=== PATIENT | female | born 1985 | race Caucasian/White ===

== ENCOUNTER 2018-04-30 12:00 | Inpatient (IN) | payer OTHER ==
[~2018-04-30] VITALS: Ht 147.3 cm; Wt 105.6 kg
[~2018-04-30 12:00] MED LIST: OXYTOCIN 30 UNITS/LR 500 ML BAG IV ONE
[2018-04-30] MEDS ORDERED: LACTATED RINGER'S 1,000 ML IV SCH (12:10)
[2018-04-30] MEDS ORDERED: METHYLERGONOVINE 0.2 MG INJ IM PRN ×2 (12:30→18:30)
[2018-04-30] MEDS ORDERED: CARBOPROST 250 MCG INJ IM PRN ×2 (12:30→18:30)
[2018-04-30] MEDS ORDERED: MISOPROSTOL 200 MCG TAB PR PRN ×2 (12:30→18:30)
[2018-04-30] MEDS ORDERED: OXYTOCIN 30 UNITS/LR 500 ML IV SCH (12:30)
[2018-04-30] MEDS ORDERED: OXYTOCIN 30 UNITS/LR 500 ML IV PRN ×2 (12:30→18:30)
[2018-04-30] MEDS ORDERED: CEFAZOLIN 2 GM/50 ML (PMX) 50 ML IVPB SCH (12:30)
[2018-04-30] MEDS ORDERED: ONDANSETRON 4 MG INJ IV STA (12:50)
[2018-04-30] MEDS ORDERED: CITRIC ACID/NA CITRATE 30 ML CUP PO ONE (13:00)
--- NOTE | 2018-04-30 13:17 | PREAC ---
Date/Time of Note Date/Time of Note DATE: 04/30/18 TIME: 13:16 Anesthesia Eval and Record Evaluation Time Pre-Procedure Interview DATE: 04/30/18 TIME: 13:16 Age 32 Sex female NPO: 8 hrs Preoperative diagnosis Repeat , request for BTL Planned procedure & BTL Past Medical History Past Medical History: Includes : : (4), Para: (3), Gestational age: (41) Surgery & Anesthesia Issues No known issue Meds Anticoagulation: No Beta Renzo within 24 hr: No Reason Beta Renzo not given: Pt. not on B-Renzo Current Medications Lactated Ringer's 1,000 ml @ 125 mls/hr Q8H IV ; Start 04/30/18 at 12:10 Cefazolin Sodium/ Dextrose 50 ml @ 100 mls/hr ONCE IVPB ; Start 04/30/18 at 12:30 Oxytocin/Lactated Ringer's 500 ml @ 125 mls/hr POST IV ; Start 04/30/18 at 12:30 Oxytocin/Lactated Ringer's 500 ml @ 0 mls/hr ONCE PRN IV .VAGINAL BLEEDING; Start 04/30/18 at 12:30 Methylergonovine Maleate (Methergine) 0.2 mg ONCE PRN IM .VAGINAL BLEEDING; Start 04/30/18 at 12:30 Carboprost Tromethamine (Hemabate) 250 mcg ONCE PRN IM .VAGINAL BLEEDING; Start 04/30/18 at 12:30 Misoprostol (Cytotec) 1,000 mcg ONCE PRN LA .VAGINAL BLEEDING; Start 04/30/18 at 12:30 Meds reviewed: Yes Allergies Coded Allergies: No Known Allergy (Unverified , 04/30/18) Allergies Reviewed: Yes Labs/Studies Labs Reviewed: Reviewed by anesthesiologist Result Diagram: 04/30/18 1233 Laboratory Tests 04/30/18 12:33 test: Positive Studies: ECG (n/a), CXR (n/a) Pre-procedure Exam Airway: Adequate mouth opening, Adequate thyromental dist Mallampati: Mallampati II Teeth: Normal Lung: Normal Heart: Normal ASA Physical Status ASA physical status: 2 Emergency: None Planned Anesthetic Neuraxial: Spinal Planned Pain Management Sub-arachniod narcotics, Parenteral pain med Pre-operative Attestations Prior to commencing anesthesia and surgery, the patient was re-evaluated, there was verification of: *The patient's identity *The results of appropriate recent lab work and preoperative vital signs *The above evaluation not changing prior to induction *Anesthetic plan, risk benefits, alternative and complications discussed with patient/family; questions answered; patient/family understands, accepts and wishes to proceed. KEN ULLOA MD Apr 30, 2018 13:17
[2018-04-30 13:56] VITALS: Ht 147.3 cm; Wt 105.6 kg
[2018-04-30] MEDS ORDERED: OXYTOCIN 10 UNIT INJ ONE (14:31)
[2018-04-30] MEDS ORDERED: morphine SULFATE/PF (10 MG/10 ML) INJ ONE (14:31)
[2018-04-30] MEDS ORDERED: PHENYLephrine (100 MCG/ML) 5ML SYG ONE (14:31)
[2018-04-30] MEDS ORDERED: OXYCODONE/ACETAMINOPHEN (5/325) TAB PO PRN (15:00)
[2018-04-30] MEDS ORDERED: HYDROmorphONE 0.5 MG/0.5 ML SYG IV PRN ×4 (15:00→20:30)
[2018-04-30] MEDS ORDERED: ACETAMINOPHEN 500 MG TAB PO PRN ×2 (15:00→20:30)
[2018-04-30] MEDS ORDERED: METOCLOPRAMIDE 10 MG INJ IV PRN (15:00)
[2018-04-30] MEDS ORDERED: NALBUPHINE HCL (10 MG/1 ML) INJ IV PRN ×2 (15:00→20:30)
[2018-04-30] MEDS ORDERED: NALOXONE (0.4 MG/ML) INJ IV PRN ×2 (15:00→20:30)
[2018-04-30] MEDS ORDERED: HYDROCODONE/APAP (5/325) TAB PO PRN ×2 (15:00→20:30)
[2018-04-30] MEDS ORDERED: EPHEDrine SULFATE 50 MG/5 ML SYG IV PRN (15:00)
[2018-04-30] MEDS ORDERED: DIPHENHYDRAMINE 50 MG INJ IV PRN ×3 (15:00→20:30)
[2018-04-30] MEDS ORDERED: FENTAnyl 50 MCG/ML VIAL IV PRN ×2 (15:00)
[2018-04-30] MEDS ORDERED: MEPERIDINE 25 MG INJ IV PRN (15:00)
[2018-04-30] MEDS ORDERED: LABETALOL HCL 20MG INJ IV PRN (15:00)
[2018-04-30] MEDS ORDERED: ONDANSETRON 4 MG INJ IV PRN ×3 (15:00→20:30)
[2018-04-30] MEDS ORDERED: HYDROmorphONE 1 MG/5 ML IV SYRINGE IV PRN ×2 (15:00)
[2018-04-30] MEDS ORDERED: KETOROLAC 30 MG INJ IV PRN ×2 (15:00→20:30)
[2018-04-30] MEDS ORDERED: morphine 2 MG INJ IV PRN ×4 (15:00→20:30)
[2018-04-30] MEDS ORDERED: ONDANSETRON 4 MG INJ ONE (15:08)
[2018-04-30] MEDS ORDERED: METOCLOPRAMIDE 10 MG INJ ONE (15:08)
[2018-04-30] MEDS ORDERED: EPHEDrine 25 MG/5 ML SYG ONE (15:08)
[2018-04-30] MEDS ORDERED: DEXAMETHASONE 4 MG/ML 1 ML INJ ONE (15:08)
[2018-04-30] MEDS ORDERED: KETOROLAC 30 MG INJ ONE (15:08)
--- NOTE | 2018-04-30 15:48 | PAC ---
Date/Time of Note Date/Time of Note DATE: 04/30/18 TIME: 15:48 Post-Anesthesia Notes Post-Anesthesia Note Last documented vital signs T: 98.0 Activity: WNL Respiratory function: WNL Cardiovascular function: WNL Mental status: Baseline Pain reasonably controlled: Yes Hydration appropriate: Yes Nausea/Vomiting absent: Yes KEN ULLOA MD Apr 30, 2018 15:48
[2018-04-30] MEDS ORDERED: AZITHROMYCIN 500MG/NS (PMX) 250 ML IVPB ONE (16:00)
--- NOTE | 2018-04-30 17:55 | HP ---
Date/Time of Note Date/Time of Note DATE: 04/30/18 TIME: 17:50 OB - History Hx of Present Free Text/Dictation 32-year-old female 4 para 3 admitted for repeat and tubal ligation at 39 weeks Last Menstrual Period: July 31, 2008 Estimated Due Date: May 07, 2018 : 4 Para: 3 Care: Good Care Ultrasounds: Normal mid trimester US Obstetrical Complications: None Medical Complications: None Past Family/Social History * Past Medical, Surgical, Family and Obstetric Histories reviewed from chart. Blood Type: O+ Rubella: immune RPR/VDRL: Negative GBS Status: Negative HBsAG: Negative OB Admission Exam Physical Exam HEENT: WNL Heart: Rhythm Normal Lungs: Clear, Equal Abdomen: WNL Extremities: Normal Reflexes: Normal Cervical Dilatation: None Effacement: 0% Station: -3 Membranes: Intact Heart Rate: 140's Accelerations: Accelerations Present Decelerations: No Decelerations Varibility: Marked Contractions on Admission: None Last 72 hours Lab Results CBC & BMP 04/30/18 12:33 OB Assessment/Plan Other Assessment: Term gestation Previous section Desires sterilization Other plan: Repeat and tubal ligation LEVAR GILES MD Apr 30, 2018 17:55
--- NOTE | 2018-04-30 18:04 | OPR ---
Operative Report Planned Procedure Procedure date Apr 30, 2018 Procedure(s) Repeat and tubal ligation Performed by see signature line Hybrid Car Mechanic: ANGEL ANDERS MD Anesthesiologist: KEN ULLOA MD Pre-procedure diagnosis Term gestation Previous x1 Desires sterilization [id number] Anesthesia Type: Nagzt0t spinal Post-Procedure Post-procedure diagnosis Status post repeat tubal ligation Findings Live Baby [in OT position Clear amniotic fluid Normal-appearing right and left fallopian tubes and ovaries Estimated Blood Loss: 500 - 600 mls Specimen(s) Segments of right and left fallopian tubes Grafts/Implant(s) none Complication(s) none Pt Condition post procedure: stable Disposition: PACU Procedure Description Under satisfactory anaesthesia a Pfannenstiel incision was made two fingerbreadth above and parallel to the symphysis of pubis. Incision was extended laterally to the border of the Recti muscles on either sides. Incision was carried down with sharp and blunt dissection until fascia was reached. Anterior Recti muscle fascia was incised in mid portion and incision extended laterally to the border of skin incision. Fascia was mobilized from muscle superiorly and Recti muscles were from midline using sharp and blunt dissection. Peritoneum was visualized; Avoiding bowel and bladder it was incised . Incision was extended superiorly and inferiorly. Bladder blade was placed. Posterior peritoneum covering the lower segment of the uterus and lower segment of the uterus were incised. Incision was extended laterally to the border of Round Lig. on either sides and baby was delivered from OP. position . Amniotic fluid teresa eared clear. Cord blood was obtained and cord had 3 vessels . Placenta was delivered spontaneously and appeared intact and complete. Intrauterine cavity was rubbed with a laparotomy sponge. Uterine incision was closed in 2 layers using running stitches of No1 Monocryl. Hemostasis appeared secure. Ovaries and Fallopian tubes were within normal limits. Bilateral Tubal Ligation was performed by following procedure: R fallopian tube was raised in mid portion; a Ryanne clamp was placed below the fimbriae extending to proximal portion of the fallopian tube. Another clamp was placed parallel to the first and after incising the fallopian tube the stump was sutured using 0 Vicryl stitch. Hemostasis was secure . Same procedure was done on fallopian tube on the opposite side. Hemostasis appeared to be secure on ligated sites of either fallopian tubes. Announcing needle, lap sponge and instrument count to be correct abdomen was closed in layers as follows: Peritoneum and Recti muscles with running stitches of 2-0 Vicryl. Fascia with running stitch of No 1 PDS. Subcutaneous tissue with running stitches of 2-0 Chromic and skin was closed using gloria. Patient tolerated the procedure well and was transferred to [facility] in good condition. LEVAR GILES MD Apr 30, 2018 18:04
[2018-04-30] MEDS: LACTATED RINGER'S 1,000 ML IV SCH ×2 (18:10→21:00)
[2018-04-30] MEDS ORDERED: LANOLIN HPA 1 PKT TOP PRN (18:30)
[2018-04-30] MEDS ORDERED: NA PHOSPHATE/BIPHOS 133 ML ENEMA PR PRN (18:30)
[2018-04-30 18:31] VITALS: BP 101/67; PULSE 83; RESP 18
[2018-04-30] MEDS: CEFAZOLIN 2 GM/50 ML (PMX) 50 ML IVPB SCH (18:44)
[2018-04-30 18:45] VITALS: BP 110/66; PULSE 80; RESP 18
[2018-04-30 19:40] VITALS: BP 99/59; PULSE 65; RESP 19
[2018-04-30] MEDS: SENNA/DOCUSATE NA (8.6MG/50MG) TAB PO SCH (21:00)
[2018-05-01] VITALS: BP 100/58; PULSE 61; RESP 20
[2018-05-01] MEDS: CLINDAMYCIN 300 MG CAP PO SCH ×5 (00:20→23:28)
[2018-05-01] MEDS: CEFAZOLIN 2 GM/50 ML (PMX) 50 ML IVPB SCH ×2 (02:48→10:00)
[2018-05-01] MEDS: LACTATED RINGER'S 1,000 ML IV SCH ×2 (05:22→13:30)
[2018-05-01 08:00] VITALS: BP 95/51; PULSE 82; RESP 18
[2018-05-01] MEDS: SENNA/DOCUSATE NA (8.6MG/50MG) TAB PO SCH ×2 (08:40→21:46)
[2018-05-01] MEDS ORDERED: BISACODYL 10 MG SUPP PR ONE (10:00)
--- NOTE | 2018-05-01 15:26 | PN ---
Date/Time of Note Date/Time of Note DATE: 05/01/18 TIME: 15:18 Assessment/Plan VTE Prophylaxis VTE Prophylaxis Intervention: ambulation Lines/Catheters IV Catheter Type (from Nrsg): Peripheral IV Assessment/Plan Assessment/Plan Status post postop day Will advance diet and ambulate Continue to monitor vital signs Subjective 24 Hr Interval Summary No bowel movement passing flatus Constitutional: no complaints, improved, ambulates, BM, flatus, urine output Pain Control: well controlled Exam/Review of Systems Vital Signs Vitals Vital Signs Date Temp Pulse Resp B/P (MAP) Pulse Ox O2 O2 Flow FiO2 Time Delivery Rate 05/01/18 Room Air 10:00 05/01/18 98.9 82 18 95/51 (66) 97 08:00 Intake and Output 04/30/18 04/30/18 05/01/18 1515:00 23:00 07:00 IntakeIntake Total 1000 ml 945 ml 1225 ml OutputOutput Total 700 ml 1900 ml BalanceBalance 1000 ml 245 ml -675 ml Exam Free Text/Dictation Abdomen is soft and not distended Bowel sounds are present Incision is covered Constitutional: alert, oriented, well developed Psych: no complaints, nl mood/affect Head: normocephalic, atraumatic Eyes: nl conjunctiva, EOMI, nl lids, nl sclera ENMT: nl external ears & nose, nl lips & teeth, nl nasal mucosa & septum, mucosa pink and moist Neck: supple, non-tender Respiratory: clear to auscultation, normal air movement Cardiovascular: regular rate and rhythm, nl pulses Gastrointestinal: soft, nl liver, spleen, non-tender Musculoskeletal: nl extremities to inspection, nl gait and stance Extremities: normal pulses Neurological: BOTTOM PRESSER II-XII intact, nl mental status, nl speech, nl strength Skin: nl turgor, rash or lesions Lymph: nl lymph nodes Results Result Diagram: 05/01/18 0627 LEVAR GILES MD May 01, 2018 15:26
[2018-05-01 15:49] VITALS: BP 89/50; PULSE 75; RESP 20
[2018-05-01] MEDS: HYDROCODONE/APAP (5/325) TAB PO PRN (18:32)
[2018-05-01 20:15] VITALS: BP 99/67; PULSE 78; RESP 18
[2018-05-01] MEDS: IBUPROFEN 800 MG TAB PO SCH (21:47)
[2018-05-02] MEDS: HYDROCODONE/APAP (5/325) TAB PO PRN ×2 (02:21→11:06)
[2018-05-02 04:00] VITALS: BP 101/63; PULSE 84; RESP 20
[2018-05-02] MEDS: CLINDAMYCIN 300 MG CAP PO SCH ×4 (05:39→23:46)
[2018-05-02] MEDS: IBUPROFEN 800 MG TAB PO SCH ×3 (05:39→21:40)
[2018-05-02 08:00] VITALS: BP 91/60; PULSE 89; RESP 18
[2018-05-02] MEDS: SENNA/DOCUSATE NA (8.6MG/50MG) TAB PO SCH ×2 (09:34→21:40)
[2018-05-02 16:14] VITALS: BP 90/57; PULSE 90; RESP 18
[2018-05-02] MEDS: OXYCODONE/ACETAMINOPHEN (5/325) TAB PO PRN (16:14)
[2018-05-02 20:15] VITALS: BP 103/68; PULSE 84; RESP 20
[2018-05-02] MEDS ORDERED: ACETAMINOPHEN 325 MG TAB PO SCH (23:00)
--- NOTE | 2018-05-02 23:02 | DS ---
Date/Time of Note Date/Time of Note home today or next day DATE: 05/02/18 TIME: 22:59 Obstetrical Discharge Record Final Diagnosis Final Diagnosis: Term delivered Other Final Diagnosis S/P C/S + BTL Vaginal Delivery Obstetrical Delivery: Bilateral Tubal Ligation Section Section: Repeat Condition on Discharge Physical Assessment Last Vitals: see nurses notes Voiding: Yes Bowel Movement: Yes Breast: Soft, non-tender, Filling Fundus: Firm Abdomen and Incision: abdomen: soft BS + incision is without induration and or erythema Episiotomy: N/A Calf Tenderness: No Patient Condition: Good LEVAR GILES MD May 02, 2018 23:01
[2018-05-02] MEDS ORDERED: IBUP800T48 PO (23:03)
[2018-05-02] MEDS ORDERED: ACET325T33 PO (23:03)
--- NOTE | 2018-05-02 23:07 | DS ---
Date/Time of Note Date/Time of Note DATE: 05/02/18 TIME: 23:04 Discharge Summary Admission/Discharge Info Admit Date/Time Apr 30, 2018 at 12:00 Discharge Date/Time 05/02 or 05/03 2018 Discharge Diagnosis S/P C/S Patient Condition: Good Procedures repeat C/S and BTL Hx of Present Illness 32 y/o female underwent repeat C/S + BTL Hospital Course uncomplicated Home Meds Active Scripts Ibuprofen* (Motrin*) 800 Mg Tab, 800 MG PO Q8, #60 TAB 0 Refills Prov:LEVAR GILES MD 05/02/18 Acetaminophen* (Tylenol*) 325 Mg Tablet, 650 MG PO Q6H, #60 TAB 0 Refills Prov:LEVAR GILES MD 05/02/18 Follow-up Plan 2-3 days in clinic for staple removal Primary Care Provider Not On Staff Doctor Time spent on discharge: > 30 minutes LEVAR GILES MD May 02, 2018 23:07
--- NOTE | 2018-05-02 23:09 | PD.PPDC ---
[employer] RIVETING MACHINE OPERATOR Discharge Instruction Provider Information Physician Information 32 y/o female underwent repeat C/S + BTL Diagnosis [id number] Final Diagnosis: Tilhf3g S/P C/S + BTL Condition [id number] Patient Condition: Gvnqc2a Good Diet [id number] Diet: Hdbxg9f Resume Regular Diet Activity/Restrictions [id number] Activity: Gwlvh8t May Shower [id number] Restrictions: Yhmkw6y No Exercising No Lifting Nothing in the Vagina [id number] Return to Work or School: [id number] Jun 29, 2018 Follow-up Follow-up with Physician: 2, 3, Day/Days (in clinic for staple removal) Return to clinic for Ekijj8Oe [employer] Instructions: Ytmbb3d Fever greater than 101 Chills [id number] OB Instructions: Lfrmz4y Breast Tenderness Depression Cuilt2Iy Surgical Instructions: Gzppp6n Incisional Drainage Incisional Redness LEVAR GILES MD May 02, 2018 23:09
[2018-05-03] MEDS: HYDROCODONE/APAP (5/325) TAB PO PRN (01:11)
[2018-05-03 04:00] VITALS: BP 92/52; PULSE 79; RESP 18
[2018-05-03] MEDS: CLINDAMYCIN 300 MG CAP PO SCH ×2 (05:36→11:56)
[2018-05-03] MEDS: IBUPROFEN 800 MG TAB PO SCH ×2 (05:36→13:53)
[2018-05-03] MEDS ORDERED: DIPHTH/TET/ACEL PERTUSS (ADULT) 0.5 ML VIAL IM* ONE (09:00)
[2018-05-03] MEDS ORDERED: MEASLES,MUMPS,RUBELLA VACCINE INJ SC* ONE (09:00)
[2018-05-03 09:14] VITALS: BP_SYST 112; PULSE 86; RESP 18
[2018-05-03] MEDS: SENNA/DOCUSATE NA (8.6MG/50MG) TAB PO SCH (09:15)
[2018-05-03] MEDS: OXYCODONE/ACETAMINOPHEN (5/325) TAB PO PRN (11:56)
== END 2018-05-03 17:55 | disposition home or self-care (01) | DRG 785 ==
LOC: L-D 12:00 → PP1 18:32
PROVIDERS: ADMIT Obstetrics & Gynecology; ATTEND Obstetrics & Gynecology
PROC: 0UB70ZZ Excision of Bilateral Fallopian Tubes, Open Approach (ICD-10-PCS; 2018-04-30)
PROC: 10D00Z1 Extraction of Products of Conception, Low, Open Approach (ICD-10-PCS; principal; 2018-04-30 14:30)
DX: O34.219 Maternal care for unspecified type scar from previous cesarean delivery (principal); Z3A.39 39 weeks gestation of pregnancy; Z37.0 Single live birth; Z30.2 Encounter for sterilization
CPT/HCPCS: 85025; 85610; 85730; 86592; 86850; 86900; 86901; 87340; 88302; 99464; J0456; J0690; J1100; J1885; J2274; J2370; J2405; J2590; J2765; J7120